=== PATIENT | female | born 1985 | race Caucasian/White ===

== ENCOUNTER 2022-10-22 15:02 | Emergency (ER) | payer MEDICAID ==
[~2022-10-22] VITALS: Ht 167.6 cm; Wt 64.4 kg
[2022-10-22] MEDS ORDERED: KETOROLAC TROMETHAMINE 30 MG VIAL IM ONE (15:30)
[2022-10-22 15:46] VITALS: BP_SYST 131; PULSE 98; RESP 18; TEMP 97.9; O2SAT 98
[2022-10-22] MEDS ORDERED: OXYCODONE/ACETAMINOPHEN 5-325 TABLET PO ONE (16:45)
[2022-10-22] MEDS ORDERED: CYCL10TA24 PO (18:20)
[2022-10-22] MEDS ORDERED: ACET-2634 PO (18:20)
[2022-10-22] MEDS ORDERED: OXYC-128 PO (18:20)
[2022-10-22] MEDS ORDERED: NAPR-688 PO (18:20)
[2022-10-22 18:49] VITALS: BP_SYST 131; PULSE 98; RESP 18; TEMP 97.9; O2SAT 98
== END 2022-10-22 18:49 | disposition home or self-care (01) ==
LOC: SED 15:02
DX: S43.402A Unspecified sprain of left shoulder joint, initial encounter (principal); S70.12XA Contusion of left thigh, initial encounter; Z79.899 Other long term (current) drug therapy; V89.2XXA Person injured in unspecified motor-vehicle accident, traffic, initial encounter; Y93.89 Activity, other specified; Y92.89 Other specified places as the place of occurrence of the external cause; Y99.8 Other external cause status
CPT/HCPCS: 73030; 73090; 73502; 73564; 99284